=== PATIENT | female | born 1935 | race Caucasian/White ===

== ENCOUNTER 2017-06-05 11:02 | Inpatient (IN) ==
[2017-06-05] MEDS ORDERED: 0.9 % Sodium Chloride 1,000 ML IVC ONE ×2 (11:38→23:41)
[2017-06-05 11:42] LABS: Basophils % 0.2 %; Hemoglobin 14.4 g/dL (11.5-15.4); Lymphocytes % 4.2 %; Monocytes % 4.1 %
[2017-06-05 11:43] LABS: Basophils # 0.1 K/mcL (0.0-0.2); Hematocrit 42.4 % (35.3-44.9); Lymphocytes # 1.5 K/mcL (0.6-4.6); Mean Corpuscular Hemoglobin 29.8 pg (28.0-33.3); Mean Corpuscular Volume 87.6 fL (83.0-100.0); Monocytes # 1.5 K/mcL (0.0-1.3); Neutrophils # 32.2 K/mcL (1.6-8.9); Platelet Count 237 K/mcL (140-400); Red Blood Count 4.84 M/mcL (3.82-4.97); Segmented Neutrophils % 90.5 %
[2017-06-05 11:46] LABS: Bilirubin,Urine Small (Negative); Blood,Urine Large (Negative); Clarity,Urine Turbid (Clear); Color,Urine Orange (Yellow); Glucose,Urine (UA) Normal (Normal); Ketones,Urine Trace mg/dL (Negative); Leukocyte Esterase,Urine Large (Negative); Nitrite,Urine Negative (Negative); PH,Urine 5.5 pH Units (5.0-8.0); Protein,Urine 100 mg/dL (Neg-Trace); Specific Gravity,Urine 1.026 (1.010-1.025); Urobilinogen,Urine Normal (Normal)
[2017-06-05 11:51] LABS: Bacteria,Urine Many per hpf (None-Few); Squamous Epithelial Cell,Urine Many per lpf (None-Few); WBC,Urine TNTC per hpf (0-3)
[2017-06-05 11:56] LABS: Albumin 2.7 g/dL (3.5-5.0); Albumin/Globulin Ratio 0.6 (1.1-2.2); Bilirubin,Direct 0.3 mg/dL (0.0-0.5); Bilirubin,Indirect 0.4 mg/dL (0.0-1.2); Bilirubin,Total 0.7 mg/dL (0.2-1.2); Calcium 9.6 mg/dL (8.6-10.8); Globulin 4.7 g/dL (2.4-3.5); Potassium 3.9 mEq/L (3.5-4.5); Total Protein 7.4 g/dL (6.0-8.3)
--- NOTE | 2017-06-05 12:39 | Emergency Department Note ---
Disposition Clinical Impression: Sepsis, Hypotension, UTI (urinary tract infection), Leukocytosis Disposition: Admitted As Inpatient Condition: Critical Referrals: Carmela Lenz MD [Primary Care Provider] - Forms: Work/School Release, ED Satisfaction Letter Time of Disposition: 12:41 General Adult HPI - General Chief complaint: ED Fever Stated complaint: Fever, WBC 36.1 Time Seen by Provider: 06/05/17 11:05 Source: patient, family, EMS Limitations: no limitations Nursing Notes Reviewed: Yes Vital Signs Reviewed: Yes - History of Present Illness HPI Narrative: 81-year-old female presents emergency room from a [place] [facility] for fever of 102 and leukocytosis. She had outpatient lab work done this morning which showed a white count of greater than 30,000. Family member states she had a fever last night of 102. There is been no reports of any coughing. No vomiting. She does have a poor appetite. Denies abdominal pain. No headache or neck pain. Patient is a poor historian as she has a history of dementia. She has been in the [place] [facility] for the past for 5 months secondary to deconditioning as well as a right hip repair. Patient has no other complaints at this time. Pain Scale: 0 - Related Data Home Medications Medication Instructions Recorded Confirmed Omeprazole [PriLOSEC] 20 mg PO DAILY 06/04/16 04/04/17 Sertraline [Zoloft] 100 mg PO HS 06/04/16 04/04/17 amLODIPine [Norvasc] 5 mg PO DAILY 06/04/16 04/04/17 Dextromethorphan HBr/Quinidine 1 each PO BID 04/04/17 04/04/17 [Nuedexta 20-10 mg Capsule] Ferrous Sulfate 325 mg PO DAILY 04/04/17 04/04/17 Levofloxacin [Levaquin] 500 mg PO DAILY 04/04/17 04/04/17 Allergies Allergy/AdvReac Type Severity Reaction Status Date / Time alendronate sodium Allergy Gastrointestinal Verified 06/04/16 15:55 [From Fosamax] Upset Erythromycin Base Allergy Chest Pain Verified 06/04/16 15:55 metronidazole [From Flagyl] Allergy Gastrointestinal Verified 06/04/16 15:55 Upset Penicillins Allergy Hives Verified 06/04/16 15:55 risedronate sodium Allergy Gastrointestinal Verified 06/04/16 15:55 [From Actonel] Upset Sulfa (Sulfonamide Allergy Hives Verified 06/04/16 15:55 Antibiotics) Constitutional: Reports: fever, chills, weakness ENT ED: Reports: as per HPI Cardiovascular: Denies: chest pain Respiratory: Denies: cough, dyspnea Gastrointestinal: Reports: nausea. Denies: abdominal pain, vomiting Musculoskeletal: Reports: as per HPI Integumentary: Reports: as per HPI Neurological: Reports: as per HPI Psychiatric: Reports: as per HPI Endocrine: Reports: as per HPI Hematological/Lymphatic: Reports: as per HPI Past Medical History - Past Medical History Medical history: Reports: dementia, GERD, hypertension Surgical history: Reports: orthopedic, other Psychiatric history: Reports: no psych history - Social History Smoking Status: Never smoker Smokeless Tobacco Status: No Alcohol use: Reports: none Drug use: Reports: none Physical Exam - General Limitations: no limitations General appearance: alert, in no apparent distress - Head Head exam: atraumatic, normocephalic - ENT ENT exam: normal exam - Neck Neck exam: Present: normal inspection - Chest Chest inspection: Present: normal inspection, symmetric chest wall rise - Respiratory Respiratory exam: Present: normal lung sounds bilaterally - Cardiovascular Cardiovascular exam: Present: regular rate, normal rhythm - Abdominal Exam Abdominal exam: Present: soft, Non-Tender, normal bowel sounds - Extremities Exam Extremities exam: Present: normal inspection - Expanded Lower Extremity Exam Hip/Pelvis exam: Present: normal inspection - Neurological Exam Neurological exam: Present: alert - Psychiatric Psychiatric exam: Present: normal affect - Skin Skin exam: Present: warm, dry, intact Course Course Narrative: Patient was found to have what appears to be pus coming from her catheter on the straight catheter. This be consistent with a urinary tract infection. It appears as though she is becoming septic with an elevated white count of 36,000 as well as pyuria and hypotension. Patient is receiving IV fluids as well as IV Rocephin. She got blood cultures taken. Patient will need to be admitted to stepdown. Patient is a full code. Vital Signs Temperature 97.2 F L 06/05/17 11:05 Pulse Rate 76 06/05/17 11:05 Respiratory Rate 18 06/05/17 11:05 Blood Pressure 79/48 06/05/17 11:05 O2 Sat by Pulse Oximetry 94 06/05/17 11:05 Temperature 97.2 F L 06/05/17 11:05 Pulse Rate 87 06/05/17 12:28 Respiratory Rate 16 06/05/17 12:28 Blood Pressure 92/52 06/05/17 12:28 O2 Sat by Pulse Oximetry 98 06/05/17 12:28 Oxygen Delivery Oxygen Delivery Room Air Medical Decision Making - Medical Records Medical records reviewed: Yes I reviewed the patient's medical records. - Lab Data Lab results reviewed: Yes I reviewed the patient's lab results. Result diagrams: 06/05/17 11:31 06/05/17 11:31 Lab Results 06/05/17 06/05/17 06/05/17 Range/Units 11:31 11:31 11:31 WBC 35.6 H* (4.3-11.1) K/mcL RBC 4.84 (3.82-4.97) M/mcL Hgb 14.4 (11.5-15.4) g/dL Hct 42.4 (35.3-44.9) % MCV 87.6 (83.0-100.0) fL MCH 29.8 (28.0-33.3) pg MCHC 34.0 (31.6-35.5) g/dL RDW 15.0 H (11.5-14.5) % Plt Count 237 (140-400) K/mcL MPV 10.0 (9.4-12.4) fL Sodium 136 (136-145) mEq/L Potassium 3.9 (3.5-4.5) mEq/L Chloride 102 (98-109) mEq/L Carbon Dioxide 21 (19-29) mEq/L BUN 35 H (7-20) mg/dL Creatinine 1.65 H (0.57-1.11) mg/dL Est GFR ( Amer) 36 L (> 60) Est GFR (Non-Af Amer) 30 L (> 60) BUN/Creatinine Ratio 21 (6-26) Glucose 349 H (70-99) mg/dL Calculated Osmolality 304 H (280-300) Lactic Acid 3.0 H (0.5-2.2) mmol/L Calcium 9.6 (8.6-10.8) mg/dL Total Bilirubin 0.7 (0.2-1.2) mg/dL Direct Bilirubin 0.3 (0.0-0.5) mg/dL Indirect Bilirubin 0.4 (0.0-1.2) mg/dL AST 17 (5-34) Units/L ALT 21 (0-55) Units/L Alkaline Phosphatase 114 (38-126) Units/L Troponin I (0-0.03) ng/mL Serum Total Protein 7.4 (6.0-8.3) g/dL Albumin 2.7 L (3.5-5.0) g/dL Globulin 4.7 H (2.4-3.5) g/dL Albumin/Globulin Ratio 0.6 L (1.1-2.2) Urine Color (Yellow) Urine Clarity (Clear) Urine pH (5.0-8.0) pH Units Ur Specific [place] (1.010-1.025) Urine Protein (Neg-Trace) mg/dL Urine Glucose (UA) (Normal) mg/dL Urine Ketones (Negative) mg/dL Urine Blood (Negative) Urine Nitrite (Negative) Urine Bilirubin (Negative) Urine Urobilinogen (Normal) mg/dL Ur Leukocyte Esterase (Negative) Urine Microscopic WBC (0-3) per hpf Ur Squamous Epith Cells (None-Few) per lpf Urine Bacteria (None-Few) per hpf Ur Culture Indicated? (NO) 06/05/17 06/05/17 Range/Units 11:31 11:32 WBC (4.3-11.1) K/mcL RBC (3.82-4.97) M/mcL Hgb (11.5-15.4) g/dL Hct (35.3-44.9) % MCV (83.0-100.0) fL MCH (28.0-33.3) pg MCHC (31.6-35.5) g/dL RDW (11.5-14.5) % Plt Count (140-400) K/mcL MPV (9.4-12.4) fL Sodium (136-145) mEq/L Potassium (3.5-4.5) mEq/L Chloride (98-109) mEq/L Carbon Dioxide (19-29) mEq/L BUN (7-20) mg/dL Creatinine (0.57-1.11) mg/dL Est GFR ( Amer) (> 60) Est GFR (Non-Af Amer) (> 60) BUN/Creatinine Ratio (6-26) Glucose (70-99) mg/dL Calculated Osmolality (280-300) Lactic Acid (0.5-2.2) mmol/L Calcium (8.6-10.8) mg/dL Total Bilirubin (0.2-1.2) mg/dL Direct Bilirubin (0.0-0.5) mg/dL Indirect Bilirubin (0.0-1.2) mg/dL AST (5-34) Units/L ALT (0-55) Units/L Alkaline Phosphatase (38-126) Units/L Troponin I 0.08 H* (0-0.03) ng/mL Serum Total Protein (6.0-8.3) g/dL Albumin (3.5-5.0) g/dL Globulin (2.4-3.5) g/dL Albumin/Globulin Ratio (1.1-2.2) Urine Color Bureau A (Yellow) Urine Clarity Turbid A (Clear) Urine pH 5.5 (5.0-8.0) pH Units Ur Specific [place] 1.026 H (1.010-1.025) Urine Protein 100 H (Neg-Trace) mg/dL Urine Glucose (UA) Normal (Normal) mg/dL Urine Ketones Trace H (Negative) mg/dL Urine Blood Large H (Negative) Urine Nitrite Negative (Negative) Urine Bilirubin Small H (Negative) Urine Urobilinogen Normal (Normal) mg/dL Ur Leukocyte Esterase Large H (Negative) Urine Microscopic WBC TNTC H (0-3) per hpf Ur Squamous Epith Cells Many H (None-Few) per lpf Urine Bacteria Many H (None-Few) per hpf Ur Culture Indicated? YES A (NO) - Radiology Data Radiology results reviewed: Yes I reviewed the patient's radiology results. Critical Care Time Critical Care Time: Yes Total Critical Care Time: 35 Attestation: Total critical care time of 35 minutes spent in sepsis management.
[2017-06-05 13:14] LABS: Platelet Estimate Normal (Normal)
[2017-06-05] MEDS ORDERED: Naloxone 0.4 MG/ML INJ IVP PRN (13:38)
--- NOTE | 2017-06-05 13:45 | Internal Med History&Physical ---
Date of Encounter: 06/05/17 Time of Encounter: 13:30 Assessment and Plan (1) UTI (urinary tract infection) Current visit: Yes Status: Acute Ramires catheter is in place to assist with bladder drainage. We will likely need to flush when necessary. He is day 1 of IV Rocephin. Cultures are pending. IV fluids and treatment as per sepsis protocol. 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 Current visit: No Status: Chronic Stable no evidence of infection (4) Dementia Current visit: Yes Status: Acute Continue home medications Qualifiers: Dementia type: unspecified type Dementia behavioral disturbance: without behavioral disturbance Qualified Code(s): F03.90 - Unspecified dementia without behavioral disturbance (5) HTN (hypertension) Current visit: Yes Status: Acute Blood pressure on soft side, like pressure medications held, monitor Qualifiers: Hypertension type: essential hypertension Qualified Code(s): I10 - Essential (primary) hypertension (6) BONG (acute kidney injury) Current visit: Yes Status: Acute IV fluids, monitor. Avoid nephrotoxins. Likely partially due to sepsis. His is superimposed on chronic kidney disease stage III. (7) CKD (chronic kidney disease) stage 3, GFR 30-59 ml/min Current visit: Yes Status: Acute IVF, avoid nephrotoxins, [facility] Internal Medicine - H&P: HPI Admitted From: Emergency Dept Plans for Post Hospital Care: Transfer Senior Product Engineer Care History of present illness: Ms. Wilson is a 81 year old female with a past medical history of advanced dementia, resides at a nursing facility. Very limited interactions. She also has a history of recurrent urinary tract infections and came off some type of antibiotic 10 days ago. Her daughter does not know the name. Patient also has a history of hypertension and GERD. Patient was brought to the emergency room today for acting combative and more confused than baseline. On arrival she was noted to be hemodynamically stable and afebrile. She however had a white count of 35.6, BUN/creatinine of 35 over 1.65, glucose of 349, lactic acid of 3.0. Urinalysis showed too numerous to count white blood cells. She had a Ramires catheter placed in her urine looked purulent. She also had a troponin of 0.08. Chest x-ray showed no acute disease. Patient was started on Rocephin, she was given IV fluids as per sepsis protocol , blood cultures and admitted to a monitored unit. She is a DNR. On exam she appears dehydrated but in no acute distress. Past Med Surg Social Fam HX - Past Medical History Medical history: dementia, GERD, hypertension Psychiatric history: no psych history - Past Surgical History Surgical History: orthopedic, other - Social History Smoking Status: Never smoker Smokeless Tobacco Status: No Alcohol use: none Drug use: none Occupational status: retired Current living situation: [facility] Activity Level: Wheelchair bound Recent Out of Country Travel Within the Last 8 Weeks: No Exposure or Possible Exposure to Illness During Travel: No - Family History Daughter Living Status: Still Living Hx Family Cardiac Disorders: Yes (HTN) Hx Family Endocrine Disorder: Yes (DM) Internal Medicine - H&P: Meds Omeprazole [PriLOSEC] 20 mg PO DAILY 06/04/16 [History] Sertraline [Zoloft] 100 mg PO HS 06/04/16 [History] amLODIPine [Norvasc] 5 mg PO DAILY 06/04/16 [History] Dextromethorphan HBr/Quinidine [Nuedexta 20-10 mg Capsule] 1 each PO BID [History] Ferrous Sulfate 325 mg PO DAILY 04/04/17 [History] Acetaminophen [Tylenol] 500 mg PO Q4H PRN 06/05/17 [History] Donepezil [Aricept] 5 mg PO HS 06/05/17 [History] Ipratropium/Albuterol Neb [Duoneb] 3 ml IH Q6HR PRN 06/05/17 [History] RisperiDONE [Risperdal] 0.5 mg PO HS 06/05/17 [History] 3 Allergy/AdvReac Type Severity Reaction Status Date / Time alendronate sodium Allergy Gastrointestinal Verified 06/04/16 15:55 [From Fosamax] Upset Erythromycin Base Allergy Chest Pain Verified 06/04/16 15:55 metronidazole [From Flagyl] Allergy Gastrointestinal Verified 06/04/16 15:55 Upset Penicillins Allergy Hives Verified 06/04/16 15:55 risedronate sodium Allergy Gastrointestinal Verified 06/04/16 15:55 [From Actonel] Upset Sulfa (Sulfonamide Allergy Hives Verified 06/04/16 15:55 Antibiotics) ROS unobtainable: due to mental status (Advanced dementia unable to provide history) All Systems PM: A 10-system review of systems was performed and is negative for pertinent findings except as documented above in the HPI. - Constitutional Vitals: Temp Pulse Resp BP Pulse Ox 97.2 F L 69 16 95/53 98 06/05/17 11:05 06/05/17 13:01 06/05/17 13:01 06/05/17 13:01 06/05/17 13:01 General appearance: Present: A&O X 1, no acute distress - Head Head exam: Present: atraumatic, normocephalic - Eye Eye exam: Present: PERRL, conjuntiva pink, sclera anicteric Pupils: Present: PERRL - ENT ENT exam: Present: mucous membranes dry - Neck Neck exam general surgery: Present: supple, trachea midline. Absent: lymphadenopathy - Respiratory Respiratory exam: Present: CTAB. Absent: accessory muscle use, rales, rhonchi, wheezes - Cardiovascular Cardiovascular exam: Present: RRR, +S1, +S2. Absent: diastolic murmur, gallop, rubs, systolic murmur - GI/Abdominal GI/Abdominal exam: Present: normal bowel sounds, soft, no peritoneal signs. Absent: distended, tenderness - Extremities Exam Extremities exam: Present: pedal edema (Patient also has a stage III ulcer on the base of her right heel 1" x 0.5" H is healing which does not appear to be infected. It encompasses the entire heel. No drainage. No significant erythema. She has denuding of skin about her entire heel.), warm (Capillary refill less than 2.5 seconds, feet and hands well perfused, warm) - Neurological Exam Neurological exam: Present: CN II-XII intact, no focal deficits. Absent: pronater drift, facial droop, speech deficit Internal Med - H&P Results - Labs CBC & Chem 7: 06/05/17 11:31 06/05/17 11:31
[2017-06-05] MEDS: 0.9 % Sodium Chloride 1,000 ML IVC SCH ×2 (14:36→22:38)
[2017-06-05] MEDS: Ipratropium/Albuterol Neb 3 ML IH SCH ×3 (15:22→21:49)
--- NOTE | 2017-06-05 18:50 | Event Note ---
Date of Encounter: 06/05/17 Time of Encounter: 18:40 Sespis: Follow up Pt improved. she does not communicate much at all due to advanced dementia. IVF continues at 125mL per hour. Pt more alert and did eat some. Gen: NAD, AAOx1 Skin:Warm and dry, cap refill <2.5 sec. Hands and feet warm and well perfused. Distal pulses intatct. Lung CTAB Ht Mild Tachycardia Abd- soft, NT, +BS Neuro: no gross focal deficit Lactic acid trending down Case dw caregiver at bedside who states she looks more like her normal self.
[2017-06-05] MEDS: Acetaminophen 325 MG TABLET PO PRN (20:33)
[2017-06-05] MEDS: Acetaminophen 650 MG RECTAL SUPP RC PRN (21:11)
[2017-06-05] MEDS: risperiDONE 0.25 MG TABLET PO SCH (22:33)
[2017-06-05] MEDS: QUINIDINE PO SCH (22:33)
[2017-06-05] MEDS: DEXTROMETHORPHAN HBR PO SCH (22:33)
[2017-06-05] MEDS: *HR* Heparin 5,000 UNIT/ML VIAL SQ SCH (22:41)
[2017-06-06 01:01] LABS: Acinetobacter baumannii by PCR Not Detected (Not Detect); Enterococcus by PCR Not Detected (Not Detect); Staphylococcus aureus by PCR Not Detected (Not Detect); Streptococcus agalactiae(B)PCR Not Detected (Not Detect); Streptococcus by PCR Not Detected (Not Detect); Streptococcus pneumoniae PCR Not Detected (Not Detect); Streptococcus pyogenes (A) PCR Not Detected (Not Detect); blaKPC Carbapenem-Resist Gene Not Detected (Not Detect)
[2017-06-06 01:02] LABS: Candida albicans by PCR Not Detected (Not Detect); Candida glabrata by PCR Not Detected (Not Detect); Candida krusei by PCR Not Detected (Not Detect); Candida parapsilosis by PCR Not Detected (Not Detect); Candida tropicalis by PCR Not Detected (Not Detect); Escherichia coli by PCR ***DETECTED*** (Not Detect); Klebsiella oxytoca by PCR Not Detected (Not Detect); Klebsiella pneumoniae by PCR Not Detected (Not Detect); Pseudomonas aeruginosa by PCR Not Detected (Not Detect); Serratia marcescens by PCR Not Detected (Not Detect)
[2017-06-06] MEDS: Acetaminophen 325 MG TABLET PO PRN (05:37)
[2017-06-06] MEDS: *HR* Heparin 5,000 UNIT/ML VIAL SQ SCH ×3 (05:46→21:38)
[2017-06-06] MEDS: Ipratropium/Albuterol Neb 3 ML IH SCH ×4 (06:25→22:28)
[2017-06-06 07:06] LABS: Potassium 3.7 mEq/L (3.5-4.5)
[2017-06-06] MEDS: QUINIDINE PO SCH (07:30)
[2017-06-06] MEDS: DEXTROMETHORPHAN HBR PO SCH (07:30)
[2017-06-06] MEDS: 0.9 % Sodium Chloride 1,000 ML IVC SCH ×2 (07:30→22:53)
[2017-06-06 07:59] LABS: Platelet Estimate Normal (Normal)
[2017-06-06 08:19] LABS: Hematocrit 37.3 % (35.3-44.9); Hemoglobin 12.6 g/dL (11.5-15.4); Lymphocytes # 3.8 K/mcL (0.6-4.6); Mean Corpuscular HGB Conc 33.8 g/dL (31.6-35.5); Mean Corpuscular Hemoglobin 29.9 pg (28.0-33.3); Mean Corpuscular Volume 88.4 fL (83.0-100.0); Mean Platelet Volume 10.5 fL (9.4-12.4); Neutrophils # 30.9 K/mcL (1.6-8.9); Platelet Count 198 K/mcL (140-400); Red Blood Count 4.22 M/mcL (3.82-4.97); Red Cell Distribution Width 15.3 % (11.5-14.5)
[2017-06-06] MEDS ORDERED: amLODIPine 5 MG TABLET PO SCH (09:00)
--- NOTE | 2017-06-06 09:09 | Internal Med Progress Note ---
Date of Encounter: 06/06/17 Time of Encounter: 09:07 - Assessment and plan (1) Sepsis Current Visit: Yes Status: Acute Qualifiers: Sepsis type: sepsis due to unspecified organism Qualified Code(s): A41.9 - Sepsis, unspecified organism (2) UTI (urinary tract infection) Current Visit: Yes Status: Acute Qualifiers: Urinary tract infection type: acute cystitis Hematuria presence: without hematuria Qualified Code(s): N30.00 - Acute cystitis without hematuria (3) BONG (acute kidney injury) Current Visit: Yes Status: Acute (4) Troponin level elevated Current Visit: Yes Status: Acute (5) Dementia Current Visit: Yes Status: Acute Qualifiers: Dementia type: unspecified type Dementia behavioral disturbance: without behavioral disturbance Qualified Code(s): F03.90 - Unspecified dementia without behavioral disturbance (6) HTN (hypertension) Current Visit: Yes Status: Acute Qualifiers: Hypertension type: essential hypertension Qualified Code(s): I10 - Essential (primary) hypertension - Subjective Interval history: Miscellaneous Steve is an 81-year-old female past medical history significant for dementia and hypertension brought in with altered mental status and being combative. However this morning she is awake pretty calm and follow simple commands. Due to underlying dementia she is unable to communicate much. She was diagnosed with UTI sepsis and urine culture showed Escherichia coli while sensitivities are pending. She has been started on IV Rocephin. However her white cell count has gone up from 35,000-37,000. She has history of recurrent UTI and she has a Ramires catheter and she was treated for UTI only tend as above. On admission her troponins are positive in the range of 0.08 and we plan to repeat serial troponin and an echocardiogram. Also noted to have acute renal failure with elevated creatinine and will do gentle IV hydration and repeat renal function on daily basis. Due to dementia patient is a very poor historian. I am requested to check her hemoglobin A1c and therefore nursing staff asked to order one. - Constitutional Vitals: Temp Pulse Resp BP Pulse Ox 98.8 F 100 18 124/71 93 06/06/17 07:34 06/06/17 07:40 06/06/17 07:34 06/06/17 07:34 06/06/17 07:34 General appearance: Present: A&O X 1, pleasant, no acute distress - Head Head exam: Present: atraumatic, normocephalic - Eye Eye exam: Present: PERRL, conjuntiva pink, sclera anicteric Pupils: Present: PERRL - Neck Neck exam general surgery: Present: supple, trachea midline. Absent: lymphadenopathy - Respiratory Respiratory exam: Present: CTAB. Absent: accessory muscle use, rales, rhonchi, wheezes - Cardiovascular Cardiovascular exam: Present: RRR, +S1, +S2. Absent: diastolic murmur, gallop, rubs, systolic murmur - GI/Abdominal GI/Abdominal exam: Present: normal bowel sounds, soft, no peritoneal signs. Absent: distended, tenderness - Extremities Exam Extremities exam: Present: warm, radial pulses palpable and symmetrical. Absent : calf tenderness, cyanotic, pedal edema - Neurological Exam Neurological exam: Present: no focal deficits. Absent: pronater drift, facial droop, speech deficit Additional comments: Pleasantly confused and appeared quite calm follow simple commands only moving all extremities DTRs symmetrical plantars downward bilaterally and confirm with family this is her baseline - Skin Skin exam: Present: dry, intact Internal Medicine: Result - Labs CBC & Chem 7: 06/06/17 06:43 06/06/17 06:43 Labs: Short CBC 06/06/17 Range/Units 06:43 WBC 37.7 H* (4.3-11.1) K/mcL Hgb 12.6 D (11.5-15.4) g/dL Hct 37.3 (35.3-44.9) % Plt Count 198 (140-400) K/mcL Neutrophils # 30.9 H (1.6-8.9) K/mcL BMP 06/06/17 06:43 Sodium 138 Potassium 3.7 Chloride 109 Carbon Dioxide 17 L BUN 41 H Creatinine 1.62 H Glucose 237 H Calcium 8.0 L D Consult Discharge Plan - Plan Referrals: Carmela Lenz MD [Primary Care Provider] -
[2017-06-06] MEDS: Aspirin 81 MG TAB.CHEW PO SCH (10:52)
[2017-06-06] MEDS ORDERED: *HR* Dextrose 50 % in Water (Syg) 50 ML SYRINGE IVP PRN (15:50)
[2017-06-06] MEDS ORDERED: Dextrose Gel 15 GM PO PRN ×2 (15:50)
[2017-06-06] MEDS ORDERED: D5% in Water 1,000 ML IVC PRN (15:50)
[2017-06-06] MEDS ORDERED: Perflutren Lipid Microsphere 1.3 ML in 0.9 % Sodium Chloride 8.7 ML IVP ONE (15:57)
[2017-06-06] MEDS ORDERED: Perflutren Lipid Microsphere 2 ML VIAL ONE (16:01)
[2017-06-06] MEDS: Insulin LISPRO 300 UNITS/3 ML VIAL SQ SCH ×2 (17:14→23:17)
[2017-06-06] MEDS: risperiDONE 0.25 MG TABLET PO SCH (21:38)
[2017-06-07] MEDS: Acetaminophen 325 MG TABLET PO PRN (02:43)
[2017-06-07] MEDS: Ipratropium/Albuterol Neb 3 ML IH SCH ×4 (03:29→22:39)
[2017-06-07 05:00] LABS: Basophils % 0.2 %; Hematocrit 35.1 % (35.3-44.9); Hemoglobin 11.7 g/dL (11.5-15.4); Immature Granulocytes % 1.3 % (0-4); Lymphocytes # 1.2 K/mcL (0.6-4.6); Lymphocytes % 5.3 %; Mean Corpuscular HGB Conc 33.3 g/dL (31.6-35.5); Mean Corpuscular Hemoglobin 29.1 pg (28.0-33.3); Mean Corpuscular Volume 87.3 fL (83.0-100.0); Mean Platelet Volume 10.7 fL (9.4-12.4); Monocytes # 1.2 K/mcL (0.0-1.3); Monocytes % 5.5 %; Neutrophils # 19.7 K/mcL (1.6-8.9); Platelet Count 181 K/mcL (140-400); Red Blood Count 4.02 M/mcL (3.82-4.97); Red Cell Distribution Width 15.2 % (11.5-14.5); Segmented Neutrophils % 87.7 %
[2017-06-07 06:11] LABS: Alanine Aminotransferase 14 Units/L (0-55); Alkaline Phosphatase 113 Units/L (38-126); Aspartate Amino Transferase 14 Units/L (5-34); BUN/Creatinine Ratio 33 (6-26); Bilirubin,Total 0.5 mg/dL (0.2-1.2); Blood Urea Nitrogen 34 mg/dL (7-20); Calcium 7.9 mg/dL (8.6-10.8); Carbon Dioxide 15 mEq/L (19-29); Chloride 110 mEq/L (98-109); Glucose 205 mg/dL (70-99); Osmolality,Calculated 296 (280-300); Potassium 3.3 mEq/L (3.5-4.5); Sodium 136 mEq/L (136-145); Total Protein 6.1 g/dL (6.0-8.3); eGFR For African Americans > 60 (> 60); eGFR For Non-African Americans 52 (> 60)
[2017-06-07] MEDS: *HR* Heparin 5,000 UNIT/ML VIAL SQ SCH ×3 (06:36→21:00)
[2017-06-07 07:24] LABS: Albumin 2.4 g/dL (3.5-5.0); Albumin/Globulin Ratio 0.6 (1.1-2.2); Globulin 3.7 g/dL (2.4-3.5)
[2017-06-07] MEDS: 0.9 % Sodium Chloride 1,000 ML IVC SCH ×5 (07:30→20:58)
[2017-06-07] MEDS: Aspirin 81 MG TAB.CHEW PO SCH (08:27)
[2017-06-07] MEDS: Insulin LISPRO 300 UNITS/3 ML VIAL SQ SCH ×4 (08:29→20:56)
--- NOTE | 2017-06-07 09:53 | Internal Med Progress Note ---
Date of Encounter: 06/07/17 Time of Encounter: 09:51 - Assessment and plan (1) Sepsis Current Visit: Yes Status: Acute Qualifiers: Sepsis type: Escherichia coli Qualified Code(s): A41.51 - Sepsis due to Escherichia coli [E. coli] (2) UTI (urinary tract infection) Current Visit: Yes Status: Acute Qualifiers: Urinary tract infection type: site unspecified Hematuria presence: without hematuria Qualified Code(s): N39.0 - Urinary tract infection, site not specified (3) BONG (acute kidney injury) Current Visit: Yes Status: Acute (4) Troponin level elevated Current Visit: Yes Status: Acute (5) Dementia Current Visit: Yes Status: Acute Qualifiers: Dementia type: unspecified type Dementia behavioral disturbance: without behavioral disturbance Qualified Code(s): F03.90 - Unspecified dementia without behavioral disturbance (6) HTN (hypertension) Current Visit: Yes Status: Acute Qualifiers: Hypertension type: essential hypertension Qualified Code(s): I10 - Essential (primary) hypertension - Subjective Interval history: Ms Leona Wilson is an 81-year-old female past medical history significant for dementia and hypertension brought in with altered mental status and being combative. However this morning she is awake pretty calm and follow simple commands. Due to underlying dementia she is unable to communicate much. She was diagnosed with UTI sepsis and urine culture showed Escherichia coli /ESBL. Rocephin will be discontinued and Invanz will be started. WBC count has come down to 22,000 but she is still febrile which is not a surprise. She has history of recurrent UTI and she has a Ramires catheter . On admission her troponins are positive in the range of 0.08 and repeat troponin has gone 0.06 suggesting demand ischemia secondary to sepsis: Echocardiogram showed LV EF 60% good systolic function mild diastolic dysfunction and no wall motion abnormality or significant valvular abnormality. AK I has resolved with IV hydration however potassium is low today and will be supplemented.. Due to dementia patient is a very poor historian. Family requested to check her hemoglobin A1c and therefore nursing staff asked to order one. - Constitutional Vitals: Temp Pulse Resp BP Pulse Ox 100.3 F H 88 16 131/65 93 06/07/17 07:37 06/07/17 07:37 06/07/17 07:37 06/07/17 07:37 06/07/17 07:37 General appearance: Present: A&O X 1, pleasant, no acute distress - Head Head exam: Present: atraumatic, normocephalic - Eye Eye exam: Present: PERRL, conjuntiva pink, sclera anicteric Pupils: Present: PERRL - Neck Neck exam general surgery: Present: supple, trachea midline. Absent: lymphadenopathy - Respiratory Respiratory exam: Present: CTAB. Absent: accessory muscle use, rales, rhonchi, wheezes - Cardiovascular Cardiovascular exam: Present: RRR, +S1, +S2. Absent: diastolic murmur, gallop, rubs, systolic murmur - GI/Abdominal GI/Abdominal exam: Present: normal bowel sounds, soft, no peritoneal signs. Absent: distended, tenderness - Extremities Exam Extremities exam: Present: warm, radial pulses palpable and symmetrical. Absent : calf tenderness, cyanotic, pedal edema - Neurological Exam Neurological exam: Present: CN II-XII intact, oriented X3, no focal deficits. Absent: pronater drift, facial droop, speech deficit - Skin Skin exam: Present: dry, intact Internal Medicine: Result - Labs CBC & Chem 7: 06/07/17 04:43 06/07/17 04:43 Labs: Short CBC 06/07/17 Range/Units 04:43 WBC 22.5 H (4.3-11.1) K/mcL Hgb 11.7 (11.5-15.4) g/dL Hct 35.1 L (35.3-44.9) % Plt Count 181 (140-400) K/mcL Neutrophils # 19.7 H (1.6-8.9) K/mcL BMP 06/07/17 04:43 Sodium 136 Potassium 3.3 L Chloride 110 H Carbon Dioxide 15 L BUN 34 H Creatinine 1.02 Glucose 205 H Calcium 7.9 L Cardiac Enzymes 06/06/17 Range/Units 09:33 Troponin I 0.06 H* (0-0.03) ng/mL Liver Function 06/07/17 Range/Units 04:43 Total Bilirubin 0.5 (0.2-1.2) mg/dL AST 14 (5-34) Units/L ALT 14 (0-55) Units/L Alkaline Phosphatase 113 (38-126) Units/L Albumin 2.4 L (3.5-5.0) g/dL - Impressions Impressions Echocardiogram 06/06/17 09:12 Impressions: LVEF 60-65%. Normal LV chamber size, wall thickness and function. Mild left ventricular diastolic dysfunction. Grossly normal right ventricular structure and function. Mild tricuspid regurgitation. No pulmonary hypertension. Left Ventricular Wall Motion: Rest Echo Findings All wall segments showed normal motion. Findings: Study Quality * Technically adequate exam. ECG Findings * Normal sinus rhythm. Left Ventricle * LVEF 60-65%. * Normal LV chamber size, wall thickness and function. * Mild left ventricular diastolic dysfunction. Right Ventricle * Grossly normal right ventricular structure and function. Left Atrium * Normal left atrial size. Right Atrium * Normal right atrial size. Interatrial Septum * Interatrial septum not well evaluated. Aortic Valve * Trileaflet aortic valve. * Mildly sclerotic aortic valve leaflets. * No aortic regurgitation. * No aortic stenosis. Mitral Valve * Mild mitral annular calcification. * No mitral regurgitation. * No mitral stenosis. Tricuspid Valve * Normal tricuspid valve structure. * Mild tricuspid regurgitation. * No pulmonary hypertension. Pulmonic Valve * Normal pulmonic valve structure and function. * No pulmonic regurgitation. Aorta * Normally sized aortic root. Pericardium * The pericardium appears normal. Pulmonary Artery * Normal visualized portions of the main pulmonary artery. IVC * The IVC is not dilated. Response to valsalva not well visualized. Consult Discharge Plan - Plan Referrals: Carmela Lenz MD [Primary Care Provider] -
[2017-06-07 10:31] LABS: Hemoglobin A1C 7.5 %
[2017-06-07] MEDS: Ertapenem 1,000 MG in 0.9 % Sodium Chloride Mini Bag 100 ML IVPB SCH (11:48)
[2017-06-07] MEDS: risperiDONE 0.25 MG TABLET PO SCH (20:56)
[2017-06-07] MEDS: Acetaminophen 650 MG RECTAL SUPP RC PRN (20:59)
[2017-06-08] MEDS: Ipratropium/Albuterol Neb 3 ML IH SCH ×4 (03:59→22:55)
[2017-06-08] MEDS: *HR* Heparin 5,000 UNIT/ML VIAL SQ SCH ×3 (06:39→21:10)
[2017-06-08] MEDS: 0.9 % Sodium Chloride 1,000 ML IVC SCH ×2 (06:44→16:51)
[2017-06-08 08:28] LABS: Basophils % 0.1 %; Eosinophils % 0.2 %; Hematocrit 35.5 % (35.3-44.9); Hemoglobin 11.6 g/dL (11.5-15.4); Immature Granulocytes % 0.8 % (0-4); Lymphocytes # 0.9 K/mcL (0.6-4.6); Lymphocytes % 6.3 %; Mean Corpuscular HGB Conc 32.7 g/dL (31.6-35.5); Mean Corpuscular Hemoglobin 28.8 pg (28.0-33.3); Mean Corpuscular Volume 88.1 fL (83.0-100.0); Mean Platelet Volume 11.1 fL (9.4-12.4); Monocytes # 0.8 K/mcL (0.0-1.3); Monocytes % 5.9 %; Neutrophils # 12.4 K/mcL (1.6-8.9); Platelet Count 165 K/mcL (140-400); Red Blood Count 4.03 M/mcL (3.82-4.97); Red Cell Distribution Width 15.1 % (11.5-14.5); Segmented Neutrophils % 86.7 %
[2017-06-08] MEDS: Aspirin 81 MG TAB.CHEW PO SCH (08:47)
[2017-06-08] MEDS: Ertapenem 1,000 MG in 0.9 % Sodium Chloride Mini Bag 100 ML IVPB SCH (08:48)
[2017-06-08] MEDS: Insulin LISPRO 300 UNITS/3 ML VIAL SQ SCH ×4 (08:49→22:49)
[2017-06-08 10:17] LABS: Alanine Aminotransferase 14 Units/L (0-55); Albumin/Globulin Ratio 0.5 (1.1-2.2); Alkaline Phosphatase 117 Units/L (38-126); Aspartate Amino Transferase 16 Units/L (5-34); BUN/Creatinine Ratio 28 (6-26); Bilirubin,Total 0.7 mg/dL (0.2-1.2); Carbon Dioxide 19 mEq/L (19-29); Chloride 112 mEq/L (98-109); Glucose 196 mg/dL (70-99); Osmolality,Calculated 294 (280-300); Potassium 3.4 mEq/L (3.5-4.5); Sodium 138 mEq/L (136-145); Total Protein 5.8 g/dL (6.0-8.3); eGFR For African Americans > 60 (> 60); eGFR For Non-African Americans > 60 (> 60)
[2017-06-08 10:26] LABS: Albumin 1.8 g/dL (3.5-5.0); Blood Urea Nitrogen 21 mg/dL (7-20)
--- NOTE | 2017-06-08 17:15 | Internal Med Progress Note ---
Date of Encounter: 06/08/17 Time of Encounter: 17:12 - Assessment and plan (1) Sepsis Current Visit: Yes Status: Acute Qualifiers: Sepsis type: Escherichia coli Qualified Code(s): A41.51 - Sepsis due to Escherichia coli [E. coli] (2) UTI (urinary tract infection) Current Visit: Yes Status: Acute Qualifiers: Urinary tract infection type: site unspecified Hematuria presence: without hematuria Qualified Code(s): N39.0 - Urinary tract infection, site not specified (3) BONG (acute kidney injury) Current Visit: Yes Status: Acute (4) Troponin level elevated Current Visit: Yes Status: Acute (5) Dementia Current Visit: Yes Status: Acute Qualifiers: Dementia type: unspecified type Dementia behavioral disturbance: without behavioral disturbance Qualified Code(s): F03.90 - Unspecified dementia without behavioral disturbance (6) HTN (hypertension) Current Visit: Yes Status: Acute Qualifiers: Hypertension type: essential hypertension Qualified Code(s): I10 - Essential (primary) hypertension - Subjective Interval history: Ms Leona Wilson is an 81-year-old female past medical history significant for dementia and hypertension brought in with altered mental status and being combative. However this morning she is awake pretty calm and follow simple commands. Due to underlying dementia she is unable to communicate much. She was diagnosed with UTI sepsis and urine culture showed Escherichia coli /ESBL. Rocephin will be discontinued and Invanz will be started. WBC count has come down to 22,000 but she is still febrile which is not a surprise. She has history of recurrent UTI and she has a Ramires catheter . On admission her troponins are positive in the range of 0.08 and repeat troponin has gone 0.06 suggesting demand ischemia secondary to sepsis: Echocardiogram showed LV EF 60% good systolic function mild diastolic dysfunction and no wall motion abnormality or significant valvular abnormality. AK I has resolved with IV hydration however potassium is low today and will be supplemented.. Due to dementia patient is a very poor historian. Family requested to check her hemoglobin A1c and therefore nursing staff asked to order one. 06/08 sensorium improved awake now follow commands. Yesterday she had fever 101 ? However WBC count has reduced to 14,000 now. Continue current treatment follow WBC count. She has ESBL and both urine and blood. Discussed with family - Constitutional Vitals: Temp Pulse Resp BP Pulse Ox 98.1 F 67 16 154/72 95 06/08/17 15:41 06/08/17 15:46 06/08/17 15:59 06/08/17 15:41 06/08/17 15:59 General appearance: Present: A&O X 1, pleasant, no acute distress - Head Head exam: Present: atraumatic, normocephalic - Eye Eye exam: Present: PERRL, conjuntiva pink, sclera anicteric Pupils: Present: PERRL - Neck Neck exam general surgery: Present: supple, trachea midline. Absent: lymphadenopathy - Respiratory Respiratory exam: Present: CTAB. Absent: accessory muscle use, rales, rhonchi, wheezes - Cardiovascular Cardiovascular exam: Present: RRR, +S1, +S2. Absent: diastolic murmur, gallop, rubs, systolic murmur - GI/Abdominal GI/Abdominal exam: Present: normal bowel sounds, soft, no peritoneal signs. Absent: distended, tenderness - Extremities Exam Extremities exam: Present: warm, radial pulses palpable and symmetrical. Absent : calf tenderness, cyanotic, pedal edema - Neurological Exam Neurological exam: Present: CN II-XII intact, oriented X3, no focal deficits. Absent: pronater drift, facial droop, speech deficit - Skin Skin exam: Present: dry, intact Internal Medicine: Result - Labs CBC & Chem 7: 06/08/17 07:29 06/08/17 07:29 Labs: Short CBC 06/08/17 Range/Units 07:29 WBC 14.3 H (4.3-11.1) K/mcL Hgb 11.6 (11.5-15.4) g/dL Hct 35.5 (35.3-44.9) % Plt Count 165 (140-400) K/mcL Neutrophils # 12.4 H (1.6-8.9) K/mcL BMP 06/08/17 07:29 Sodium 138 Potassium 3.4 L Chloride 112 H Carbon Dioxide 19 BUN 21 H D Creatinine 0.76 Glucose 196 H Calcium 8.0 L Liver Function 06/08/17 Range/Units 07:29 Total Bilirubin 0.7 (0.2-1.2) mg/dL AST 16 (5-34) Units/L ALT 14 (0-55) Units/L Alkaline Phosphatase 117 (38-126) Units/L Albumin 1.8 L D (3.5-5.0) g/dL - VTE Documentation of Mechanical Device: Intermittent pneumatic compression device Consult Discharge Plan - Plan Referrals: Carmela Lenz MD [Primary Care Provider] -
[2017-06-08] MEDS: risperiDONE 0.25 MG TABLET PO SCH (21:10)
[2017-06-09] MEDS: 0.9 % Sodium Chloride 1,000 ML IVC SCH ×4 (02:53→12:52)
[2017-06-09] MEDS: Ipratropium/Albuterol Neb 3 ML IH SCH ×3 (03:48→16:15)
[2017-06-09 04:53] LABS: Basophils % 0.3 %; Eosinophils # 0.1 K/mcL (0.0-0.6); Eosinophils % 0.5 %; Hematocrit 35.2 % (35.3-44.9); Hemoglobin 11.7 g/dL (11.5-15.4); Immature Granulocytes % 1.6 % (0-4); Lymphocytes # 0.9 K/mcL (0.6-4.6); Lymphocytes % 8.1 %; Mean Corpuscular HGB Conc 33.2 g/dL (31.6-35.5); Mean Corpuscular Hemoglobin 28.8 pg (28.0-33.3); Mean Corpuscular Volume 86.7 fL (83.0-100.0); Mean Platelet Volume 10.8 fL (9.4-12.4); Monocytes # 0.8 K/mcL (0.0-1.3); Monocytes % 7.2 %; Neutrophils # 9.6 K/mcL (1.6-8.9); Platelet Count 174 K/mcL (140-400); Red Blood Count 4.06 M/mcL (3.82-4.97); Segmented Neutrophils % 82.3 %
[2017-06-09 05:12] LABS: Alanine Aminotransferase 17 Units/L (0-55); Albumin/Globulin Ratio 0.5 (1.1-2.2); Alkaline Phosphatase 119 Units/L (38-126); Aspartate Amino Transferase 21 Units/L (5-34); BUN/Creatinine Ratio 24 (6-26); Bilirubin,Total 0.7 mg/dL (0.2-1.2); Blood Urea Nitrogen 16 mg/dL (7-20); Carbon Dioxide 18 mEq/L (19-29); Chloride 115 mEq/L (98-109); Globulin 4.1 g/dL (2.4-3.5); Glucose 185 mg/dL (70-99); Osmolality,Calculated 298 (280-300); Potassium 3.4 mEq/L (3.5-4.5); Sodium 141 mEq/L (136-145); eGFR For African Americans > 60 (> 60); eGFR For Non-African Americans > 60 (> 60)
[2017-06-09 05:18] LABS: Albumin 1.9 g/dL (3.5-5.0)
[2017-06-09] MEDS: *HR* Heparin 5,000 UNIT/ML VIAL SQ SCH ×2 (06:32→13:01)
[2017-06-09] MEDS: Aspirin 81 MG TAB.CHEW PO SCH (10:01)
[2017-06-09] MEDS: Ertapenem 1,000 MG in 0.9 % Sodium Chloride Mini Bag 100 ML IVPB SCH (10:03)
[2017-06-09] MEDS: Insulin LISPRO 300 UNITS/3 ML VIAL SQ SCH ×3 (10:17→17:13)
[2017-06-09] MEDS ORDERED: amLODIPine 5 MG TABLET PO SCH (12:45)
--- NOTE | 2017-06-09 15:14 | Discharge Summary ---
Date of Encounter: 06/09/17 Time of Encounter: 15:09 - Discharge Diagnosis (1) Sepsis Priority: Primary Status: Acute Qualifiers: Sepsis type: Escherichia coli Qualified Code(s): A41.51 - Sepsis due to Escherichia coli [E. coli] (2) UTI (urinary tract infection) Priority: Primary Status: Acute Qualifiers: Urinary tract infection type: site unspecified Hematuria presence: without hematuria Qualified Code(s): N39.0 - Urinary tract infection, site not specified (3) BONG (acute kidney injury) Priority: Secondary Status: Acute (4) Troponin level elevated Priority: Secondary Status: Acute (5) Dementia Priority: Secondary Status: Acute Qualifiers: Dementia type: unspecified type Dementia behavioral disturbance: without behavioral disturbance Qualified Code(s): F03.90 - Unspecified dementia without behavioral disturbance (6) HTN (hypertension) Priority: Secondary Status: Acute Qualifiers: Hypertension type: essential hypertension Qualified Code(s): I10 - Essential (primary) hypertension - Discharge Medications Prescriptions: Ertapenem [INVanz] 1,000 mg IM DAILY #11 vial Home Medications: Omeprazole [PriLOSEC] 20 mg PO DAILY 06/04/16 [History] Sertraline [Zoloft] 100 mg PO HS 06/04/16 [History] amLODIPine [Norvasc] 5 mg PO DAILY 06/04/16 [History] Dextromethorphan HBr/Quinidine [Nuedexta 20-10 mg Capsule] 1 each PO BID [History] Ferrous Sulfate 325 mg PO DAILY 04/04/17 [History] Acetaminophen [Tylenol] 500 mg PO Q4H PRN 06/05/17 [History] Donepezil [Aricept] 5 mg PO HS 06/05/17 [History] Ipratropium/Albuterol Neb [Duoneb] 3 ml IH Q6HR PRN 06/05/17 [History] RisperiDONE [Risperdal] 0.5 mg PO HS 06/05/17 [History] Aspirin 81 mg PO DAILY 06/09/17 [Rx] Carvedilol [Coreg] 3.125 mg PO BIDWM tab 06/09/17 [Rx] Ertapenem [INVanz] 1,000 mg IM DAILY #11 vial 06/09/17 [Rx] Heparin 5,000 unit SQ Q8HCO vial 06/09/17 [Rx] Allergies/Adverse Reactions: 3 Allergy/AdvReac Type Severity Reaction Status Date / Time alendronate sodium Allergy Gastrointestinal Verified 06/04/16 15:55 [From Fosamax] Upset Erythromycin Base Allergy Chest Pain Verified 06/04/16 15:55 metronidazole [From Flagyl] Allergy Gastrointestinal Verified 06/04/16 15:55 Upset Penicillins Allergy Hives Verified 06/04/16 15:55 risedronate sodium Allergy Gastrointestinal Verified 06/04/16 15:55 [From Actonel] Upset Sulfa (Sulfonamide Allergy Hives Verified 06/04/16 15:55 Antibiotics) Date of admission: 06/05/17 15:12 Primary care physician: Carmela Boss Consults: 06/06/17 10:20 Consult to Neurology Teacher [CONS] Routine Reason for SW Consult: ECF Placement 06/06/17 14:59 Consult to Speech Therapy [CONS] Routine Comment: Evaluate, develop and implement POC Reason for Consult: swallowing difficulty Call Completed: No 06/09/17 11:48 Consult to Wound Care [CONS] Routine Reason for Consult: Pressure injury to bilateral heels Call Completed: No 06/09/17 12:26 Consult to Invasive Line Access Team [CONS] Routine Reason for Consult: IV ATB at discharge Line Type: EPIV Discharging clinician: Justin Azevedo Anticipated date of discharge: 06/09/17 - Patient Status Disposition: Transfer SNF Condition: Fair Overall status at discharge: patient is progressing back to baseline - Discharge Instructions Follow Up With: Carmela Lenz MD [Primary Care Provider] - (pt is going to ecf no PCP appointment needed) - Diet and Activity Activity: as per physical therapy Diet: advance to your usual diet, diabetic diet, low fat, low cholesterol, low salt diet Hospital course: Ms Leona Wilson is an 81-year-old female past medical history significant for dementia and hypertension brought in with altered mental status and being combative. She was diagnosed with UTI sepsis and urine culture showed Escherichia coli /ESBL. Initially started on Rocephin but later switched to Invanz . Blood culture also showed Escherichia coli. Infectious disease has recommended 2 weeks treatment with Invanz. She has history of recurrent UTI and she has a Ramires catheter which will be removed.. On admission her troponins are positive in the range of 0.08 and repeat troponin has gone 0.06 suggesting demand ischemia secondary to sepsis: Echocardiogram showed LV EF 60% good systolic function mild diastolic dysfunction and no wall motion abnormality or significant valvular abnormality. She has been a started on beta olga and low-dose aspirin. BONG noted on admission has resolved with IV hydration however potassium is low today and will be supplemented.. Due to dementia patient is a very poor historian. She seems to be back to her baseline. Her hemoglobin A1c is 7.5. - Time Spent with Patient Total time spent providing and/or coordinating discharge services: Greater than 30 minutes - Constitutional Vitals: Temp Pulse Resp BP Pulse Ox 97.5 F L 80 18 160/74 93 06/09/17 10:47 06/09/17 10:47 06/09/17 11:03 06/09/17 10:47 06/09/17 11:03 General appearance: Present: A&O X 1, pleasant, no acute distress, answers questions appropriately - Head Head exam: Present: atraumatic, normocephalic - Eye Eye exam: Present: PERRL, conjuntiva pink, sclera anicteric Pupils: Present: PERRL - Neck Neck exam general surgery: Present: supple, trachea midline. Absent: lymphadenopathy - Respiratory Respiratory exam: Present: CTAB. Absent: accessory muscle use, rales, rhonchi, wheezes - Cardiovascular Cardiovascular exam: Present: RRR, +S1, +S2. Absent: diastolic murmur, gallop, rubs, systolic murmur - GI/Abdominal GI/Abdominal exam: Present: normal bowel sounds, soft, no peritoneal signs. Absent: distended, tenderness - Extremities Exam Extremities exam: Present: warm, radial pulses palpable and symmetrical. Absent : calf tenderness, cyanotic, pedal edema - Neurological Exam Neurological exam: Present: CN II-XII intact, no focal deficits. Absent: pronater drift, facial droop, speech deficit Additional comments: J pleasantly confused nonfocal exam follow commands noncombative - Skin Skin exam: Present: dry, intact - VTE Documentation of Mechanical Device: Intermittent pneumatic compression device
--- NOTE | 2017-06-09 15:23 | Physician Discharge Referral ---
ExtendedCare Referral Info Transfer To: SNF Provider in Charge: zane Provider in Charge after Transfer: PCP (6) Institutional Level of Care: Skilled - Diagnosis (1) Sepsis Status: Acute (2) UTI (urinary tract infection) Status: Acute (3) BONG (acute kidney injury) Status: Acute (4) Troponin level elevated Status: Acute (5) Dementia Status: Acute (6) HTN (hypertension) Status: Acute - Transfer Medications Prescriptions: Ertapenem [INVanz] 1,000 mg IM DAILY #11 vial Home Medications: Omeprazole [PriLOSEC] 20 mg PO DAILY 06/04/16 [History] Sertraline [Zoloft] 100 mg PO HS 06/04/16 [History] amLODIPine [Norvasc] 5 mg PO DAILY 06/04/16 [History] Dextromethorphan HBr/Quinidine [Nuedexta 20-10 mg Capsule] 1 each PO BID [History] Ferrous Sulfate 325 mg PO DAILY 04/04/17 [History] Acetaminophen [Tylenol] 500 mg PO Q4H PRN 06/05/17 [History] Donepezil [Aricept] 5 mg PO HS 06/05/17 [History] Ipratropium/Albuterol Neb [Duoneb] 3 ml IH Q6HR PRN 06/05/17 [History] RisperiDONE [Risperdal] 0.5 mg PO HS 06/05/17 [History] Aspirin 81 mg PO DAILY 06/09/17 [Rx] Carvedilol [Coreg] 3.125 mg PO BIDWM tab 06/09/17 [Rx] Ertapenem [INVanz] 1,000 mg IM DAILY #11 vial 06/09/17 [Rx] Heparin 5,000 unit SQ Q8HCO vial 06/09/17 [Rx] Allergies/Adverse Reactions: 3 Allergy/AdvReac Type Severity Reaction Status Date / Time alendronate sodium Allergy Gastrointestinal Verified 06/04/16 15:55 [From Fosamax] Upset Erythromycin Base Allergy Chest Pain Verified 06/04/16 15:55 metronidazole [From Flagyl] Allergy Gastrointestinal Verified 06/04/16 15:55 Upset Penicillins Allergy Hives Verified 06/04/16 15:55 risedronate sodium Allergy Gastrointestinal Verified 06/04/16 15:55 [From Actonel] Upset Sulfa (Sulfonamide Allergy Hives Verified 06/04/16 15:55 Antibiotics) - Respiratory Orders Smoking Cessation: Smoking cessation has been advised. For more information, call the [place] Tobacco Quit Line at 5-448-QMVP-NOW. - Lab Orders Lab Orders: Other (include drug levels w/frequency) - Rehabiliation Orders Rehab Orders: Evaluation for Physical Therapy - Treatments Skin tear care topically daily PRN per policy, May check for fecal impaction rectally daily PRN, Fleet enema rectally every other day PRN cleansing purposes (Please check CBC and BMP twice a week starting 2016 and followed and follow those results to the admitting M.D. and family doctor) CERTIFICATION: I certify that the transfer of the above named patient to an Extended Care Facility is necessary for the continuing treatment of the diagnosis listed. The above information is true and accurate reflection of patient's current condition. Confidential - Redisclosure prohibited without a patient's written consent.
[2017-06-09] MEDS ORDERED: Silvasorb 44.4 ML TUBE TP SCH (15:45)
[2017-06-09 17:23] VITALS: BP 151/82
--- NOTE | 2017-06-09 20:53 | Electrocardiograph Report ---
[place] [address] Test Date: 2017-06-05 Pat Name: Leona Wilson Department: 105 Room: 2N10 Gender: F Crowd Controller: : [id number] Requested By: Justin Azevedo Order Number: [id number] Reading MD: Pavan Birmingham MD Measurements Intervals [place] Rate: 75 P: 16 CT: 190 QRS: -3 QRSD: 86 T: 13 QT: 397 QTc: 425 Interpretive Statements SINUS RHYTHM LOW QRS VOLTAGE IN PRECORDIAL LEADS BASELINE ARTIFACT Electronically Signed On 06-09-2017 20:52:03 EDT by Pavan Birmingham MD
--- NOTE | 2017-06-09 21:02 | Electrocardiograph Report ---
[place] [id number] Test Date: 2017-06-05 Pat Name: Leona Wilson Department: 110 Room: 2N10 Gender: F Call Center Consultant: : [id number] Requested By: Justin Azevedo Order Number: [id number] Reading MD: Pavan Birmingham MD Measurements Intervals [place] Rate: 118 P: 27 LA: 192 QRS: 25 QRSD: 96 T: 11 QT: 417 QTc: 487 Interpretive Statements SINUS TACHYCARDIA WITH OCCASIONAL SUPRAVENTRICULAR PREMATURE COMPLEXES LOW QRS VOLTAGE IN PRECORDIAL LEADS Electronically Signed On 06-09-2017 21:00:56 EDT by Pavan Birmingham MD
== END 2017-06-09 18:19 | DRG 871 ==
LOC: EMEROO 11:02 → 2NNU 11:02
PROVIDERS: ADMIT Internal Medicine; ATTEND Internal Medicine